=== PATIENT | female | born 1950 | race Caucasian/White ===

== ENCOUNTER 2021-02-25 10:27 | Day surgery (SDC) | payer MEDICARE, MEDICAID ==
[~2021-02-25] VITALS: Ht 149.9 cm; Wt 90.4 kg
[2021-02-25] VITALS (12 sets, daily range): BP systolic 122–171; BP diastolic 61–89
[~2021-02-25 10:27] MED LIST: ALBU8.5H8 IH; AMIT-189 PO; AMLO2.5T4 PO; ASPI-611 PO; BUSP10TA11 PO; CARB200C7 PO; CITA20TA19 PO; CYCL-1 PO; ESTR0.5T PO; FLUT16SP10 NAS; FOLI0.4T6 PO; HYDR-3686 PO; LISI40TA13 PO; LORA-512 PO; LOSA25TA96 PO; MELO-100 PO; METH2.5T55 PO; MULT-1085 PO; OMEG1CAP2 PO; OMEP20CA15 PO; RANI150T8 PO; SIMV-42 PO
[2021-02-25 11:07] LABS: BASOPHILS # (AUTO) 0.2 X10'3 (0-0.2); BASOPHILS % (AUTO) 1.4 % (0-1); EOSINOPHILS # (AUTO) 0.3 X10'3 (0-0.9); EOSINOPHILS % (AUTO) 2.1 % (0-6); HEMATOCRIT 39.2 % (35.0-45.0); HEMOGLOBIN 13.2 g/dl (12.0-16.0); LYMPHOCYTES # (AUTO) 1.6 X10'3 (1.1-4.8); LYMPHOCYTES % (AUTO) 13.4 % (21-51); MEAN CORPUSCULAR HEMOGLOBIN 31.6 PG (27.0-31.0); MEAN CORPUSCULAR HGB CONC 33.6 g/dL (33.0-36.5); MEAN CORPUSCULAR VOLUME 94.3 FL (78-98); MEAN PLATELET VOLUME 8.1 FL (7.4-10.4); MONOCYTES # (AUTO) 0.4 X10'3 (0-0.9); MONOCYTES % (AUTO) 3.3 % (2-12); NEUTROPHILS # (AUTO) 9.8 X10'3 (1.8-7.7); NEUTROPHILS % (AUTO) 79.8 % (42-75); PLATELET COUNT 373 X10'3 (140-440); RED BLOOD COUNT 4.16 X10'6 (4.20-5.60); RED CELL DISTRIBUTION WIDTH 15.3 % (11.5-14.5); WHITE BLOOD COUNT 12.3 X10'3 (4.5-11.0)
[2021-02-25] MEDS ORDERED: normal saline 1000ml 1,000 ML IV SCH (11:50)
[2021-02-25] MEDS ORDERED: MIDAZolam 1mg/ml 10ml vial IV ONE (11:50)
[2021-02-25] MEDS ORDERED: fentaNYL/PF 50MCG/1 ML 2ML syringe IV ONE (11:50)
[2021-02-25] MEDS ORDERED: CHOL100017 PO (12:48)
== END 2021-02-25 17:45 | disposition home or self-care (01) ==
LOC: SSTAY O 10:27
PROVIDERS: ATTEND Radiology Diagnostic Radiology
DX: R74.8 Abnormal levels of other serum enzymes (principal); K74.3 Primary biliary cirrhosis; M06.9 Rheumatoid arthritis, unspecified; E78.5 Hyperlipidemia, unspecified; I10 Essential (primary) hypertension; Z87.442 Personal history of urinary calculi; Z90.710 Acquired absence of both cervix and uterus; Z98.890 Other specified postprocedural states; Z87.891 Personal history of nicotine dependence; Z88.2 Allergy status to sulfonamides; Z79.899 Other long term (current) drug therapy; Z79.82 Long term (current) use of aspirin
CPT/HCPCS: 36415; 47000; 76942; 85025; 85610; 88307; 88313; 99152; 99153; J2250; J3010; J7030